=== PATIENT | female | born 1990 | race Caucasian/White ===

== ENCOUNTER 2017-09-25 15:48 | Emergency (ER) | payer BC ==
[~2017-09-25] VITALS: Ht 152.4 cm; Wt 46.2 kg
[2017-09-25 16:02] VITALS: BP 122/78
[2017-09-25] MEDS ORDERED: DIFLUCAN200 MG PO (16:56)
[2017-09-25] MEDS ORDERED: BACTRIM,SEPT1 TABLET PO (16:56)
[2017-09-25] MEDS ORDERED: KEFLEX500 MG PO (16:56)
== END 2017-09-25 17:36 | disposition home or self-care (01) ==
LOC: EME 15:48
DX: L03.116 Cellulitis of left lower limb (principal); L03.115 Cellulitis of right lower limb; B35.4 Tinea corporis; Z86.14 Personal history of Methicillin resistant Staphylococcus aureus infection; Z88.1 Allergy status to other antibiotic agents
CPT/HCPCS: 87070; 87075; 87077; 87147; 87186; 87205; 99281; 99284